=== PATIENT | male | born 2000 | race Caucasian/White ===

== ENCOUNTER 2022-05-21 02:07 | Emergency (ER) | payer MEDICAID ==
[~2022-05-21] VITALS: Ht 170.2 cm; Wt 100.0 kg
[2022-05-21] MEDS ORDERED: BACITRACIN ZINC OINT UDPKT TOP ONE (02:45)
[2022-05-21] MEDS ORDERED: IBUPROFEN 600MG TABLET PO ONE (02:45)
[2022-05-21] MEDS ORDERED: LIDOCAINE HCL/PF 1% 10 MG/ML 5ML VIAL INFIL ONE (02:45)
[2022-05-21 03:01] VITALS: BP 128/74
[2022-05-21] MEDS ORDERED: BO1 TP (03:48)
[2022-05-21] MEDS ORDERED: IBUP-2029 MT (03:48)
== END 2022-05-21 03:56 | disposition home or self-care (01) ==
LOC: ER 02:26
DX: S41.111A Laceration without foreign body of right upper arm, initial encounter (principal); W45.8XXA Other foreign body or object entering through skin, initial encounter; Y93.89 Activity, other specified; Y92.89 Other specified places as the place of occurrence of the external cause; Y99.8 Other external cause status
CPT/HCPCS: 12005; 99284; J3490